=== PATIENT | male | born 1955 | race Caucasian/White ===

== ENCOUNTER 2017-06-01 09:08 | Day surgery (SDC) | payer BC ==
[~2017-06-01] VITALS: Ht 167.6 cm; Wt 101.6 kg
[~2017-06-01 09:08] MED LIST: ASPI81EC PO; CLAR500 PO; HYDACE5 PO
[2017-06-01] MEDS ORDERED: Ibuprofen Ib200 MG (10:11)
== END 2017-06-01 13:25 | disposition home or self-care (01) ==
LOC: ORSCSDS 09:08
PROVIDERS: Podiatrist Foot & Ankle Surgery
PROC: 0JBR0ZZ Excision of Left Foot Subcutaneous Tissue and Fascia, Open Approach (ICD-10-PCS; principal; 2017-06-01 10:45)
DX: L08.9 Local infection of the skin and subcutaneous tissue, unspecified (principal); L03.116 Cellulitis of left lower limb; S97.82XA Crushing injury of left foot, initial encounter; F17.220 Nicotine dependence, chewing tobacco, uncomplicated; E66.01 Morbid (severe) obesity due to excess calories; Z68.36 Body mass index [BMI] 36.0-36.9, adult
CPT/HCPCS: J0171; J0690; J2250; J3010; J7120

== ENCOUNTER 2017-06-11 08:00 | Day surgery (SDC) | payer OTHER ==
[~2017-06-11 08:00] MED LIST changes: +Ibuprofen Ib200 MG
== END 2017-06-11 12:05 | disposition home or self-care (01) ==
LOC: WOUND 08:00
DX: Z48.00 Encounter for change or removal of nonsurgical wound dressing (principal); S97.82XA Crushing injury of left foot, initial encounter
CPT/HCPCS: G0463

== ENCOUNTER 2017-06-13 07:05 | Day surgery (SDC) | payer OTHER | END 2017-06-13 08:55 | disposition home or self-care (01) | LOC: ATC 07:05 | DX: S97.82XA Crushing injury of left foot, initial encounter (principal) ==

== ENCOUNTER 2017-06-18 00:28 | Day surgery (SDC) | payer OTHER, BC | END 2017-06-18 22:42 | disposition home or self-care (01) | LOC: WOUND 00:28 | PROC: 0HBNXZZ Excision of Left Foot Skin, External Approach (ICD-10-PCS; principal; 2017-06-18) | DX: S91.302A Unspecified open wound, left foot, initial encounter (principal) ==

== ENCOUNTER 2017-06-18 00:54 | Day surgery (SDC) | payer OTHER, BC | END 2017-06-18 22:42 | disposition home or self-care (01) | LOC: ATC 00:54 | DX: S97.82XA Crushing injury of left foot, initial encounter (principal) ==

== ENCOUNTER 2017-06-20 00:42 | Day surgery (SDC) | payer OTHER | END 2017-06-20 10:00 | disposition home or self-care (01) | LOC: ATC 00:42 | DX: S97.82XA Crushing injury of left foot, initial encounter (principal) | CPT/HCPCS: 99211 ==

== ENCOUNTER 2017-06-22 02:12 | Day surgery (SDC) | payer OTHER, BC | END 2017-06-22 10:28 | disposition home or self-care (01) | LOC: ATC 02:12 | DX: S97.82XA Crushing injury of left foot, initial encounter (principal) | CPT/HCPCS: 99211 ==

== ENCOUNTER 2017-06-25 08:01 | Day surgery (SDC) | payer OTHER | END 2017-06-25 22:46 | disposition home or self-care (01) | LOC: WOUND 08:01 | DX: S97.82XA Crushing injury of left foot, initial encounter (principal) | CPT/HCPCS: G0463 ==

== ENCOUNTER 2017-07-02 08:45 | Day surgery (SDC) | payer OTHER | END 2017-07-02 11:19 | disposition home or self-care (01) | LOC: WOUND 08:45 | DX: Z48.00 Encounter for change or removal of nonsurgical wound dressing (principal); S97.82XA Crushing injury of left foot, initial encounter | CPT/HCPCS: G0463 ==

== ENCOUNTER 2017-07-16 08:22 | Day surgery (SDC) | payer OTHER | END 2017-07-16 10:12 | disposition home or self-care (01) | LOC: WOUND 08:22 | DX: Z48.00 Encounter for change or removal of nonsurgical wound dressing (principal); S97.82XA Crushing injury of left foot, initial encounter | CPT/HCPCS: G0463 ==

== ENCOUNTER 2017-07-23 08:04 | Day surgery (SDC) | payer OTHER | END 2017-07-23 09:24 | disposition home or self-care (01) | LOC: WOUND 08:04 | DX: Z48.00 Encounter for change or removal of nonsurgical wound dressing (principal); S97.82XA Crushing injury of left foot, initial encounter | CPT/HCPCS: G0463 ==

== ENCOUNTER → 2017-10-17 | Outpatient (CLI) | payer BC ==
[2017-10-17 11:38] LABS: BASOPHILS ABSOLUTE AUTO 0.05 K/mm3 (0.00-0.23); BASOPHILS PERCENT AUTO 0 % (0-2); EOSINOPHILS ABSOLUTE AUTO 0.02 K/mm3 (0.00-0.68); EOSINOPHILS PERCENT AUTO 0 % (0-6); Hematocrit 44.7 % (37.0-53.0); Hemoglobin 14.7 g/dL (13.5-17.5); IMMATURE GRAN ABSOLUTE AUTO 0.09 K/mm3 (0.00-0.10); IMMATURE GRAN PERCENT AUTO 1 % (0-1); LYMPHOCYTES ABSOLUTE AUTO 0.88 K/mm3 (0.84-5.20); LYMPHOCYTES PERCENT AUTO 6 % (21-46); MONOCYTES ABSOLUTE AUTO 0.97 K/mm3 (0.16-1.47); MONOCYTES PERCENT AUTO 7 % (4-13); Mean Corpuscular HGB 28.7 pg (26.0-34.0); Mean Corpuscular HGB Conc 32.9 g/dL (31.5-36.5); Mean Corpuscular Volume 87 fL (80-100); Mean Platelet Volume 11.5 fL (9.1-12.4); NEUTROPHILS ABSOLUTE AUTO 11.83 K/mm3 (1.96-9.15); NEUTROPHILS PERCENT AUTO 85 % (41-73); Platelet Count 248 K/mm3 (150-400); RDW Coefficient Variation 13.3 % (11.7-14.2); Red Blood Cell Count 5.13 M/mm3 (4.30-5.90); White Blood Cell Count 13.84 K/mm3 (4.00-11.30)
[2017-10-17 11:49] LABS: Albumin, Blood 3.1 g/dL (3.4-5.0); Albumin/Globulin Ratio 0.6 (0.8-1.8); Bilirubin, Total 0.7 mg/dL (0.1-1.0); Bun/Creatinine Ratio 16.7 (12.0-20.0); Calcium, Blood 8.5 mg/dL (8.5-10.1); Creatinine, Blood 1.38 mg/dL (0.60-1.20); Potassium, Blood 3.7 mmol/L (3.5-5.5); Total Protein, Blood 8.1 g/dL (6.4-8.2)
== END ==
LOC: LAB SHORT 10:46 → LAB 10:46
PROVIDERS: Family Medicine
DX: R10.9 Unspecified abdominal pain (principal)
CPT/HCPCS: 80053; 85025; 87077; 87086; 87186

== ENCOUNTER 2018-07-15 10:23 | Emergency (ER) | payer BC ==
[~2018-07-15] VITALS: Ht 172.7 cm; Wt 102.1 kg
[2018-07-15] MEDS ORDERED: METOPROLOL PO (10:32)
[2018-07-15 11:06] LABS: BASOPHILS ABSOLUTE AUTO 0.06 K/mm3 (0.00-0.23); BASOPHILS PERCENT AUTO 1 % (0-2); EOSINOPHILS ABSOLUTE AUTO 0.17 K/mm3 (0.00-0.68); EOSINOPHILS PERCENT AUTO 2 % (0-6); Hematocrit 43.5 % (37.0-53.0); Hemoglobin 13.8 g/dL (13.5-17.5); IMMATURE GRAN ABSOLUTE AUTO 0.02 K/mm3 (0.00-0.10); IMMATURE GRAN PERCENT AUTO 0 % (0-1); LYMPHOCYTES ABSOLUTE AUTO 1.29 K/mm3 (0.84-5.20); LYMPHOCYTES PERCENT AUTO 18 % (21-46); MONOCYTES ABSOLUTE AUTO 0.58 K/mm3 (0.16-1.47); MONOCYTES PERCENT AUTO 8 % (4-13); Mean Corpuscular HGB 27.5 pg (26.0-34.0); Mean Corpuscular HGB Conc 31.7 g/dL (31.5-36.5); Mean Corpuscular Volume 87 fL (80-100); NEUTROPHILS ABSOLUTE AUTO 5.03 K/mm3 (1.96-9.15); NEUTROPHILS PERCENT AUTO 70 % (41-73); Platelet Count 358 K/mm3 (150-400); RDW Coefficient Variation 14.2 % (11.7-14.2); RDW Standard Deviation 44.9 fL (35.1-46.3); Red Blood Cell Count 5.02 M/mm3 (4.30-5.90); White Blood Cell Count 7.15 K/mm3 (4.00-11.30)
[2018-07-15 11:35] LABS: Troponin I <0.015 ng/mL (0.000-0.040)
[2018-07-15 11:49] LABS: Alanine Aminotransfer (ALT/SGP 68 U/L (12-78); Albumin, Blood 3.4 g/dL (3.4-5.0); Albumin/Globulin Ratio 0.8 (0.8-1.8); Alk Phos 96 U/L (50-136); Anion Gap 5 mmol/L (6-16); Aspartate Aminotrans (AST/SGOT 20 U/L (12-37); Bilirubin, Total 0.4 mg/dL (0.1-1.0); Blood Urea Nitrogen 11 mg/dL (8-24); Bun/Creatinine Ratio 14.2 (12.0-20.0); CO2, Blood 26 mmol/L (21-32); Calcium, Blood 8.5 mg/dL (8.5-10.1); Chloride, Blood 110 mmol/L (98-108); Creatinine, Blood 0.78 mg/dL (0.60-1.20); Glomerular Filtration Rate >60 (60-); Glucose, Blood 101 mg/dL (70-99); Potassium, Blood 4.3 mmol/L (3.5-5.5); Sodium, Blood 141 mmol/L (136-145); Total Protein, Blood 7.4 g/dL (6.4-8.2)
[2018-07-15 14:45] LABS: Source, Urine Clean Catch
[2018-07-15 14:47] LABS: Bilirubin, Urine Neg (Neg); Blood, Urine 2+ (Neg); Glucose Qualitative, Urine Neg (Neg); Ketones, Urine Neg (Neg); Leukocyte Esterase, Urine 2+ (Neg); Nitrite, Urine Neg (Neg); Protein, Urine 1+ (Neg); Specific Gravity, Urine 1.015 (1.003-1.022); Urobilinogen, Urine NORM (Normal)
[2018-07-15 14:58] LABS: Appearance, Urine Hazy (Clear); Color, Urine Yellow (P-Yellow)
[2018-07-15 14:59] LABS: Bacteria Many /hpf; Squamous Epithelial Cells Not Seen /hpf (Few); White Blood Cells, Urine 25-50 /hpf (0-5)
[2018-07-15] MEDS ORDERED: Cipro500 MG PO (15:00)
[2018-07-15] MEDS ORDERED: Prinivil10 MG PO (15:16)
== END 2018-07-15 15:06 | disposition home or self-care (01) ==
LOC: ER 10:23
PROVIDERS: Emergency Medicine; Physician Assistant
DX: N39.0 Urinary tract infection, site not specified (principal); Z79.899 Other long term (current) drug therapy; I10 Essential (primary) hypertension; F17.220 Nicotine dependence, chewing tobacco, uncomplicated
CPT/HCPCS: 36415; 71046; 80053; 81001; 83690; 83880; 84484; 85025; 87077; 87086; 87186; 93005; 93010; 99285-25

== ENCOUNTER 2021-03-02 08:20 | Emergency (ER) | payer SELFPAY ==
[~2021-03-02 08:20] MED LIST changes: +Cipro500 MG PO; +METOPROLOL PO; +Prinivil10 MG PO
== END 2021-03-02 09:32 | disposition left against medical advice (07) ==
LOC: ER 08:20
DX: Z53.21 Procedure and treatment not carried out due to patient leaving prior to being seen by health care provider (principal)